=== PATIENT | male | born 1990 | race Caucasian/White ===

== ENCOUNTER 2023-02-25 19:50 | Emergency (ER) | payer OTHER ==
[~2023-02-25] VITALS: Ht 180.3 cm; Wt 167.7 kg
[2023-02-25 19:52] VITALS: TEMP 98.5
[2023-02-25 20:10] LABS: BASO # 0.1 K/mm3 (0.0-0.2); BASO % 0.6 % (0.0-2.0); EOS # 0.3 K/mm3 (0.0-0.7); EOS % 2.1 % (0.0-4.0); GRAN # 6.9 K/mm3 (1.4-6.5); HEMATOCRIT 46.5 % (42.0-52.0); HEMOGLOBIN 15.2 g/dl (13.5-18.0); LYMPH # 3.6 K/mm3 (1.2-3.4); LYMPH % 29.6 % (20.0-51.0); MEAN CELL VOLUME 81 fl (80.0-100.0); MEAN CORPUSCULAR HEMOGLOBIN 26 pg (27-31); MEAN CORPUSCULAR HGB CONC 33 g/dl (33.0-37.0); MEAN PLATELET VOLUME 10.6 fl (7.4-10.4); MONO # 1.2 K/mm3 (0.1-0.6); MONO % 10.2 % (1.7-9.3); PLATELET COUNT 320 K/mm3 (130-400); RED BLOOD COUNT 5.75 M/mm3 (4.20-5.60); REDCELL DISTRIBUTION WIDTH-CV 13.8 % (11.5-14.5)
[2023-02-25] MEDS ORDERED: NS 1,000 ML IV ONE (20:15)
[2023-02-25 20:23] LABS: ALANINE AMINOTRANSFERASE 43 U/L (0-55); ALBUMIN 3.4 gm/dL (3.5-5.0); ALKALINE PHOSPHATASE 83 U/L (40-150); ANION GAP 8 mmol/L (7-16); AST,SGOT 20 U/L (5-34); BILIRUBIN,TOTAL 0.5 mg/dL (0.2-1.2); BLOOD UREA NITROGEN 14 mg/dL (9-21); CALCIUM 8.9 mg/dL (8.4-10.2); CARBON DIOXIDE 21 mmol/L (22-29); CHLORIDE 109 mmol/L (98-107); CREATININE, serum 0.94 mg/dL (0.72-1.25); GLUCOSE 112 mg/dL (70-99); LIPASE 28 U/L (8-78); POTASSIUM 3.8 mmol/L (3.5-4.5); SODIUM 138 mmol/L (136-145); TOTAL PROTEIN 7.2 gm/dL (6.2-8.1)
[2023-02-25 20:31] LABS: TROPONIN-I < 0.010 ng/mL (0.00-0.033)
[2023-02-25] MEDS ORDERED: Iohexol 350 - 100 ML VIAL IV ONE (21:15)
[2023-02-25] MEDS ORDERED: NS 74 ML IV ONE (21:16)
[2023-02-25] MEDS ORDERED: Ketorolac 15 MG/ML VIAL IV ONE (22:00)
[2023-02-25 22:21] VITALS: BP 132/94; PULSE 109
== END 2023-02-25 22:33 | disposition home or self-care (01) ==
LOC: COL.ER 19:50
PROVIDERS: Nurse Practitioner
DX: R07.89 Other chest pain (principal); M25.512 Pain in left shoulder
CPT/HCPCS: J1885; J7030; Q9967

== ENCOUNTER 2023-03-24 19:01 | Emergency (ER) | payer OTHER ==
[~2023-03-24] VITALS: Ht 180.3 cm; Wt 162.3 kg
[2023-03-24 19:05] VITALS: TEMP 98.3
[2023-03-24 20:09] LABS: BASO % 0.5 % (0.0-2.0); EOS # 0.2 K/mm3 (0.0-0.7); GRAN # 4.8 K/mm3 (1.4-6.5); GRAN % 57.5 % (42.2-75.2); HEMATOCRIT 43.4 % (42.0-52.0); HEMOGLOBIN 14.5 g/dl (13.5-18.0); LYMPH # 2.3 K/mm3 (1.2-3.4); LYMPH % 27.8 % (20.0-51.0); MEAN CELL VOLUME 80 fl (80.0-100.0); MEAN CORPUSCULAR HEMOGLOBIN 27 pg (27-31); MEAN CORPUSCULAR HGB CONC 33 g/dl (33.0-37.0); MEAN PLATELET VOLUME 10.4 fl (7.4-10.4); PLATELET COUNT 335 K/mm3 (130-400); RED BLOOD COUNT 5.41 M/mm3 (4.20-5.60); REDCELL DISTRIBUTION WIDTH-CV 13.5 % (11.5-14.5)
[2023-03-24 20:24] LABS: ALANINE AMINOTRANSFERASE 51 U/L (0-55); ALBUMIN 3.6 gm/dL (3.5-5.0); ALKALINE PHOSPHATASE 68 U/L (40-150); ANION GAP 8 mmol/L (7-16); AST,SGOT 27 U/L (5-34); BILIRUBIN,TOTAL 0.7 mg/dL (0.2-1.2); BLOOD UREA NITROGEN 9 mg/dL (9-21); CALCIUM 9.2 mg/dL (8.4-10.2); CARBON DIOXIDE 23 mmol/L (22-29); CHLORIDE 107 mmol/L (98-107); CREATININE, serum 0.86 mg/dL (0.72-1.25); GLUCOSE 80 mg/dL (70-99); POTASSIUM 3.3 mmol/L (3.5-4.5); SODIUM 138 mmol/L (136-145); TOTAL PROTEIN 7.1 gm/dL (6.2-8.1)
[2023-03-24 20:33] LABS: TROPONIN-I < 0.010 ng/mL (0.00-0.033)
[2023-03-24 21:37] VITALS: BP 123/86; PULSE 75
== END 2023-03-24 21:37 | disposition home or self-care (01) ==
LOC: COL.ER 19:01
PROVIDERS: Personal Emergency Response Attendant
DX: R07.89 Other chest pain (principal); R20.2 Paresthesia of skin; I45.10 Unspecified right bundle-branch block

== ENCOUNTER 2023-05-02 16:15 | Emergency (ER) | payer OTHER ==
[~2023-05-02] VITALS: Ht 177.8 cm; Wt 160.0 kg
[2023-05-02] MEDS ORDERED: NS 500 ML IV ONE (17:15)
[2023-05-02] MEDS ORDERED: Mag/Al Hydrox/Simeth Susp 30 ML CUP PO ONE ×2 (17:15)
[2023-05-02 17:48] LABS: BASO # 0.1 K/mm3 (0.0-0.2); BASO % 0.6 % (0.0-2.0); EOS # 0.2 K/mm3 (0.0-0.7); EOS % 2.4 % (0.0-4.0); GRAN # 5.6 K/mm3 (1.4-6.5); GRAN % 66.2 % (42.2-75.2); HEMATOCRIT 44.3 % (42.0-52.0); HEMOGLOBIN 14.5 g/dl (13.5-18.0); LYMPH # 1.6 K/mm3 (1.2-3.4); LYMPH % 18.6 % (20.0-51.0); MEAN CELL VOLUME 82 fl (80.0-100.0); MEAN CORPUSCULAR HEMOGLOBIN 27 pg (27-31); MEAN CORPUSCULAR HGB CONC 33 g/dl (33.0-37.0); MEAN PLATELET VOLUME 10.1 fl (7.4-10.4); MONO % 11.8 % (1.7-9.3); PLATELET COUNT 368 K/mm3 (130-400); RED BLOOD COUNT 5.42 M/mm3 (4.20-5.60); REDCELL DISTRIBUTION WIDTH-CV 13.4 % (11.5-14.5)
[2023-05-02 18:09] LABS: ALANINE AMINOTRANSFERASE 30 U/L (0-55); ALBUMIN 3.3 gm/dL (3.5-5.0); ALKALINE PHOSPHATASE 84 U/L (40-150); ANION GAP 9 mmol/L (7-16); AST,SGOT 20 U/L (5-34); BILIRUBIN,TOTAL 0.4 mg/dL (0.2-1.2); BLOOD UREA NITROGEN 10 mg/dL (9-21); CALCIUM 9.1 mg/dL (8.4-10.2); CARBON DIOXIDE 23 mmol/L (22-29); CHLORIDE 109 mmol/L (98-107); CREATININE, serum 0.96 mg/dL (0.72-1.25); GLUCOSE 80 mg/dL (70-99); LIPASE 26 U/L (8-78); MAGNESIUM 2.1 mg/dL (1.6-2.6); POTASSIUM 3.9 mmol/L (3.5-4.5); SODIUM 141 mmol/L (136-145); TOTAL PROTEIN 6.9 gm/dL (6.2-8.1)
[2023-05-02 18:15] LABS: TROPONIN-I < 0.010 ng/mL (0.00-0.033)
[2023-05-02] MEDS ORDERED: XANAX 0.5MG0.5 MG PO (18:33)
[2023-05-02] MEDS ORDERED: PEPCID40 MG PO (18:33)
[2023-05-02 18:50] VITALS: BP 131/92; PULSE 64; TEMP 98.7
== END 2023-05-02 18:50 | disposition home or self-care (01) ==
LOC: COL.ER 16:15
PROVIDERS: Internal Medicine
DX: K29.50 Unspecified chronic gastritis without bleeding (principal); K21.00 Gastro-esophageal reflux disease with esophagitis, without bleeding; F41.0 Panic disorder [episodic paroxysmal anxiety]
CPT/HCPCS: J7040

== ENCOUNTER 2023-10-29 19:56 | Emergency (ER) | payer OTHER ==
[~2023-10-29] VITALS: Ht 180.3 cm; Wt 170.5 kg
[~2023-10-29 19:56] MED LIST: BUSPAR5 MG; LEXAPRO 10MG10 MG; PEPCID40 MG PO; PROTONIX 40MG T40 MG; XANAX 0.5MG0.5 MG PO
[2023-10-29 19:58] VITALS: TEMP 98.7
[2023-10-29 20:53] LABS: BASO % 0.4 % (0.0-2.0); EOS # 0.3 K/mm3 (0.0-0.7); EOS % 2.5 % (0.0-4.0); GRAN # 6.3 K/mm3 (1.4-6.5); GRAN % 58.5 % (42.2-75.2); HEMATOCRIT 43.4 % (42.0-52.0); HEMOGLOBIN 14.6 g/dl (13.5-18.0); LYMPH % 27.7 % (20.0-51.0); MEAN CELL VOLUME 81 fl (80.0-100.0); MEAN CORPUSCULAR HEMOGLOBIN 27 pg (27-31); MEAN CORPUSCULAR HGB CONC 34 g/dl (33.0-37.0); MEAN PLATELET VOLUME 9.9 fl (7.4-10.4); MONO # 1.2 K/mm3 (0.1-0.6); MONO % 10.6 % (1.7-9.3); PLATELET COUNT 329 K/mm3 (130-400); RED BLOOD COUNT 5.37 M/mm3 (4.20-5.60); REDCELL DISTRIBUTION WIDTH-CV 13.7 % (11.5-14.5)
[2023-10-29 21:04] LABS: ALBUMIN 3.6 g/dL (3.5-5.0); BILIRUBIN,TOTAL 0.5 mg/dL (0.2-1.2); CREATININE, serum 0.95 mg/dL (0.72-1.25); POTASSIUM 3.5 mEq/L (3.5-4.5); TOTAL PROTEIN 7.4 g/dl (6.2-8.1)
[2023-10-29 21:45] VITALS: BP 145/83; PULSE 78
== END 2023-10-29 21:55 | disposition home or self-care (01) ==
LOC: COL.ER 19:56
PROVIDERS: Emergency Medicine
DX: R10.9 Unspecified abdominal pain (principal)